=== PATIENT | male | born 1965 | race Two or more races ===

== ENCOUNTER 2023-07-30 12:06 | Emergency (ER) | payer OTHER, SELFPAY ==
[2023-07-30] VITALS (10 sets, daily range): BP systolic 128–143; BP diastolic 79–102; PULSE 62–70; RESP 10–26; TEMP 36.7; O2SAT 97–99; BMI 36.6
--- NOTE | 2023-07-30 12:24 | ED_ITS ---
HPI - Chest Pain General Chief Complaint: Chest Pain Stated Complaint: CHEST PAIN, DIZZINESS, SHORTNESS OF BREATH Time Seen by Provider: 07/30/23 12:17 Source: patient Mode of arrival: walk-in History of Present Illness HPI narrative: 57-year-old male presents to the emergency department for intermittent chest pain for the last week. He's been experiencing a tightness across his lower chest but he's been under a lot of stress recently. A friend of his unexpectedly recently. Occasionally he'll feel some fluttering in his chest which lasted about an hour and he has a history of atrial fibrillation and is on Eliquis. He doesn't have the fluttering now. No fever or productive cough or vomiting. He's been taking his medications as prescribed. Related Data Home Medications Medication Instructions Recorded Confirmed albuterol sulfate 90 mcg/actuation 1 puff inhalation Q6H PRN 07/30/23 07/30/23 aerosol inhaler (Ventolin HFA) shortness of breath or wheezing apixaban 5 mg tablet (Eliquis) 5 mg PO BID 07/30/23 07/30/23 baclofen 10 mg tablet 10 mg PO BID PRN muscle spasm 07/30/23 07/30/23 budesonide-formoterol HFA 160 2 puff inhalation BID 07/30/23 07/30/23 mcg-4.5 mcg/actuation aerosol inhaler (Symbicort) carvedilol 12.5 mg tablet 12.5 mg PO BID 07/30/23 07/30/23 diltiazem HCl 240 mg 240 mg PO QAM 07/30/23 07/30/23 capsule,extended release 24 hr, controlled lisinopril 20 1 tab PO QAM 07/30/23 07/30/23 mg-hydrochlorothiazide 12.5 mg tablet pantoprazole 40 mg tablet,delayed 40 mg PO BID 07/30/23 07/30/23 release Allergies Allergy/AdvReac Type Severity Reaction Status Date / Time Penicillins Allergy Severe Verified 07/30/23 12:14 Review of Systems ROS Narrative A ten point review of systems is negative except as noted above. Exam Narrative Exam Narrative: Nurses note and vital signs reviewed and patient is not hypoxic. General: The patient appears well and in no apparent distress. Patient is resting comfortably on cart. Skin: Warm, dry, no pallor noted. There is no rash noted. Head: Normocephalic, atraumatic Eye: Normal conjunctiva, no drainage Ears, Nose, Mouth, and Throat: oral mucosa is moist. Nares patent. Cardiovascular: Regular Rate and Rhythm. he is in sinus rhythm on the monitor. Respiratory: Patient is in no distress, no accessory muscle use, lungs are clear to auscultation, no wheezing, rales or rhonchi Back: non-tender GI: soft and nontender Musculoskeletal: The patient has no evidence of calf tenderness, no pitting edema, symmetrical pulses noted bilaterally Neurological: A&O, normal speech Psychiatric: Cooperative Constitutional Vital Signs, click to edit/add: Last Vital Signs Temp 98.1 F 07/30/23 12:10 Pulse 62 07/30/23 13:10 Resp 25 H 07/30/23 13:10 BP 128/79 07/30/23 12:13 Pulse Ox 98 07/30/23 13:10 O2 Del Method Room Air 07/30/23 12:10 Course Vital Signs Vital signs: Vital Signs Temperature 98.1 F 07/30/23 12:10 Pulse Rate 70 07/30/23 12:10 Respiratory Rate 20 07/30/23 12:10 Blood Pressure 128/79 07/30/23 12:10 Pulse Oximetry 98 07/30/23 12:10 Oxygen Delivery Method Room Air 07/30/23 12:10 Temperature 98.1 F 07/30/23 12:10 Pulse Rate 62 07/30/23 13:10 Respiratory Rate 25 H 07/30/23 13:10 Blood Pressure 128/79 07/30/23 12:13 Pulse Oximetry 98 07/30/23 13:10 Oxygen Delivery Method Room Air 07/30/23 12:10 MDM - Chest Pain MDM Narrative Medical decision making narrative: his workup is negative. At this point I do not suspect acute coronary syndrome. He's been having these symptoms for a week or more. I do not clinically suspect pulmonary embolism. He'll be discharged home and will follow-up with his physician. I suspect that his symptoms are due to stress which he admits he has had a great deal of recently. Treatment diagnosis and follow-up were discussed with the patient. Differential Diagnosis Differential diagnosis: Likely pneumothorax, unstable angina pectoris, atypical chest pain, st elevation myocardial infarction, costochondritis and chest pain Lab Data Attestation: I reviewed the patient's lab results. Labs: Lab Results 07/30/23 07/30/23 Range/Units 12:20 13:00 WBC 13.8 H (4.0-11.0) 10^3/uL RBC 4.93 (4.70-6.10) 10^6/uL Hgb 14.4 (14.0-18.0) g/dL Hct 43.8 (42.0-54.0) % MCV 88.8 (80.0-94.0) fL MCH 29.2 (25.9-34.0) pg MCHC 32.9 (29.9-35.2) g/dL RDW 13.7 (11.0-15.0) % Plt Count 303 (150-450) 10^3/uL MPV 11.5 (9.5-13.5) fL Neut % (Auto) 67.0 (43.0-75.0) % Lymph % (Auto) 19.4 L (20.5-60.0) % [place] % (Auto) 11.9 (1.7-12.0) % Eos % (Auto) 0.9 (0.9-7.0) % Baso % (Auto) 0.2 (0.2-2.0) % Neut # (Auto) 9.2 H (1.4-6.5) 10^3/uL Lymph # (Auto) 2.7 (1.2-3.8) 10^3/uL [place] # (Auto) 1.6 H (0.3-0.8) 10^3/uL Eos # (Auto) 0.1 (0.0-0.7) 10^3/uL Baso # (Auto) 0.0 (0.0-0.1) 10^3/uL Abs Immat Gran (auto) 0.08 H (0.00-0.03) 10^3/uL Imm/Tot Granulo (auto) 0.6 H (0.0-0.5) % Sodium 138 (136-145) mmol/L Potassium 4.2 (3.5-5.1) mmol/L Chloride 104 (98-107) mmol/L Carbon Dioxide 26.3 (21.0-32.0) mmol/L Anion Gap 11.9 BUN 22.0 H (7.0-18.0) mg/dL Creatinine 1.12 (0.70-1.30) mg/dL Est GFR ( Amer) >60 (>=60) Est GFR (Non-Af Amer) >60 (>=60) BUN/Creatinine Ratio 19.6 Glucose 99 (74-106) mg/dL Calcium 9.0 (8.5-10.1) mg/dL Troponin I High Sens 14.7 (4.0-76.1) pg/mL Imaging Data Chest x-ray: Radiologist's impression: Procedure: XR chest 1V EXAM: XR chest 1V HISTORY: chest pain COMPARISON: None. TECHNIQUE: Chest X-ray AP, 1 view FINDINGS: Support devices: None. Lungs/pleura: No consolidation, effusion, or pneumothorax. Heart and mediastinum: Normal contours. Bones: No acute abnormality identified. Impression: No radiographic evidence of acute cardiopulmonary process. Electronically authenticated by: FRANCISCA REEVES Date: 07/30/2023 13 Discharge Plan Discharge Chief Complaint: Chest Pain Clinical Impression: Chest pain Patient Disposition: Home, Self-Care Time of Disposition Decision: 13:43 Condition: Good Mode of Transportation: Private Vehicle Prescriptions / Home Meds: No Action albuterol sulfate [Ventolin HFA] 90 mcg/actuation HFA aerosol inhaler 1 puff INHALATION Q6H PRN (Reason: shortness of breath or wheezing) Eliquis 5 mg tablet 5 mg PO BID baclofen 10 mg tablet 10 mg PO BID PRN (Reason: muscle spasm) budesonide-formoterol [Symbicort] 160-4.5 mcg/actuation HFA aerosol inhaler 2 puff INHALATION BID carvedilol 12.5 mg tablet 12.5 mg PO BID diltiazem HCl 240 mg capsule,ext.rel 24h degradable 240 mg PO QAM lisinopril-hydrochlorothiazide 20-12.5 mg tablet 1 tab PO QAM pantoprazole 40 mg tablet,delayed release (DR/EC) 40 mg PO BID Instructions: Chest Pain (ED), Panic Attack (ED) Stand Alone Forms: Portal Instructions Referrals: SHELLIE SHEFFIELD APRN [Primary Care Provider] - 1 week
--- NOTE | 2023-07-30 12:49 | ECG_ITS ---
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
--- NOTE | 2023-07-30 12:49 | XR_ITS ---
[facility] [place] [place] [id number] Patient Name: THELMA CULLEN MRN: [id number] date: 1965 Sex: M Assigned Patient Location: ER Current Patient Location: ED.MAIN Accession/Order Number: [id number] Exam Date: 07/30/2023 12:57 Report Date: 07/30/2023 13:19 At the request of: PRAKASH JERNIGAN Procedure: XR chest 1V EXAM: XR chest 1V HISTORY: chest pain COMPARISON: None. TECHNIQUE: Chest X-ray AP, 1 view FINDINGS: Support devices: None. Lungs/pleura: No consolidation, effusion, or pneumothorax. Heart and mediastinum: Normal contours. Bones: No acute abnormality identified. XR/XR chest 1V Impression: No radiographic evidence of acute cardiopulmonary process. Electronically authenticated by: FRANCISCA REEVES Date: 07/30/2023 13:19
[2023-07-30 13:14] LABS: Basophils Percent Auto 0.2 % (0.2-2.0); Eosinophils Absolute Auto 0.1 10^3/uL (0.0-0.7); Eosinophils Percent Auto 0.9 % (0.9-7.0); Hematocrit 43.8 % (42.0-54.0); Hemoglobin 14.4 g/dL (14.0-18.0); Immature Granulocytes Abs Auto 0.08 10^3/uL (0.00-0.03); Immature Granulocytes Pct Auto 0.6 % (0.0-0.5); Lymphocytes Absolute Auto 2.7 10^3/uL (1.2-3.8); Lymphocytes Percent Auto 19.4 % (20.5-60.0); Mean Corpuscular HGB Conc 32.9 g/dL (29.9-35.2); Mean Corpuscular Hemoglobin 29.2 pg (25.9-34.0); Mean Corpuscular Volume 88.8 fL (80.0-94.0); Mean Platelet Volume 11.5 fL (9.5-13.5); Monocytes Absolute Auto 1.6 10^3/uL (0.3-0.8); Monocytes Percent Auto 11.9 % (1.7-12.0); Neutrophils Absolute Auto 9.2 10^3/uL (1.4-6.5); Platelet Count 303 10^3/uL (150-450); Red Blood Count 4.93 10^6/uL (4.70-6.10); Red Cell Distribution Width 13.7 % (11.0-15.0); White Blood Count 13.8 10^3/uL (4.0-11.0)
[2023-07-30 13:18] LABS: Anion Gap 11.9; BUN Creatinine Ratio 19.6; Carbon Dioxide 26.3 mmol/L (21.0-32.0); Chloride 104 mmol/L (98-107); Estimated GFR (African America >60 (>=60); Estimated GFR (Non-African Ame >60 (>=60); Glucose 99 mg/dL (74-106); Potassium 4.2 mmol/L (3.5-5.1); Sodium 138 mmol/L (136-145); Troponin I High Sensitivity 14.7 pg/mL (4.0-76.1)
== END 2023-07-30 14:08 | disposition home or self-care (01) ==
PROVIDERS: Emergency Provider Emergency Medicine; PCP Nurse Practitioner Primary Care
DX: R07.9 Chest pain, unspecified (principal); I48.91 Unspecified atrial fibrillation; Z79.01 Long term (current) use of anticoagulants; Z79.899 Other long term (current) drug therapy
CPT/HCPCS: 36415; 71045; 80048; 84484; 85025; 93005; 99285